=== PATIENT | female | born 1990 | race Caucasian/White ===

== ENCOUNTER 2023-09-13 20:04 | Emergency (ER) | payer OTHER, SELFPAY ==
[2023-09-13 20:06] VITALS: BP 118/78
[2023-09-13 20:38] LABS: % Basophils 0.4 % (0-2); % Eosinophils 0.1 % (0-6); % Immature Granulocytes 0.3 % (0-0.5); % Lymphocytes 8.3 % (20.5-51.1); % Monocytes 3.2 % (1.7-9.3); % Neutrophils 87.7 % (42.2-75.2); Absolute Basophils 0.1 10^3/uL (0-0.2); Absolute Immature Granulocytes 0.1 10^3/uL (0-0.05); Absolute Lymphocytes 1.5 10^3/uL (1.2-3.4); Absolute Monocytes 0.6 10^3/uL (0.1-0.6); Absolute Neutrophils 15.6 10^3/uL (1.4-6.5); Hematocrit 35.3 % (37.0-47.0); Hemoglobin 12.5 g/dL (12.0-16.0); Mean Corp Hgb Conc. 35.4 g/dL (33.0-37.0); Mean Corpuscular Hgb 30.4 pg (27.0-31.0); Mean Corpuscular Volume 85.9 fL (81.0-99.0); Mean Platelet Volume 9.8 fL (7.4-10.4); Nucleated Red Blood Cells % 0 %; Platelet Count 379 10^3/uL (130-400); Red Blood Cell Count 4.11 10^6/uL (4.20-5.40); White Blood Cell Count 17.8 10^3/uL (4.8-10.8)
[2023-09-13 20:51] LABS: HCG, Serum Qualitative Screen Negative
[2023-09-13 20:54] LABS: ALT (SGPT) 20 U/L (0-35); AST (SGOT) 24 U/L (14-36); Albumin 4.9 g/dl (3.5-5.0); Alkaline Phosphatase 48 U/L (38-126); Blood Urea Nitrogen 19 mg/dl (7-17); Carbon Dioxide 18 mmol/L (22-30); Chloride 106 mmol/L (98-107); Glucose 110 mg/dl (70-99); Lipase 125 U/L (23-300); Potassium 4.6 mmol/L (3.5-5.1); Sodium 133 mmol/L (135-145); Total Bilirubin 0.5 mg/dl (0.2-1.3); eGFR > 60.00
[2023-09-13] MEDS: ZOFRAN 4 MG IV (21:08)
[2023-09-13] MEDS: TORADOL 15 MG IV (21:09)
[2023-09-13 21:25] VITALS: BMI 21.3
[2023-09-13] MEDS: NSS 500 IV (21:27)
--- NOTE | 2023-09-13 21:27 | ED.GENMED ---
History of Present Illness
General
Chief Complaint: Abdominal Pain
Source: patient and family
Exam Limitations: none
Time Seen by Provider: 09/13/23 20:58
Nursing documentation reviewed up to this point in time: agreed with
Travel History
Have you had any contact with someone who has COVID-19?: No
Do you have any symptoms of coronavirus? Fever > 100 degrees, chills, cough, shortness of breath, sore throat, loss of taste or smell, muscle aches, or headache?: No
History of Present Illness
History of Present Illness:
Pleasant 33-year-old female that presents with left-sided flank pain that began around 2 PM. She states that it was severe and caused her nausea and vomiting but it was at its worst. She states that the pain quickly subsided but then came back
several times over the course of the afternoon. Tonight she states that the pain radiated to her left lower abdomen. She denies fever or chills. Reports nausea with vomiting. Denies chest pain or shortness of breath. No previous history of
kidney stones.
Phy Exam
General Physical Exam
General Presentation: well appearing and mild distress
General age: appears stated age
General Skin: warm and dry
General Habitus: normal
General Mental: alert
General Hydration: appears well hydrated
ENT Exam
ENT Exam: EOMI, pharynx normal, neck supple and normocephalic
Eye Exam
Eye Exam: PERRL, cornea clear and conjunctiva normal
Cardiovascular Exam
Cardiovascular Exam: regular rate/rhythm, no edema, no murmur and normal peripheral pulses
Pulmonary Exam
Pulmonary Exam: lungs clear, no respiratory distress, no rales, no crackles, no rhonchi, no stridor, no wheezing and no cough
Gastrointestinal Exam
Gastrointestinal Exam: normal bowel sounds, non tender, soft, no organomegaly, no pulsatile mass and non distended
Neurological Exam
Neurological Exam: alert, oriented x3, no motor deficits and speech normal
Musculoskeletal Exam
Musculoskeletal Exam: full ROM, back pain (Left CVA tenderness), no edema and neuro vasc intact
Skin Exam
Skin Exam: normal color, warm/dry, no rash and no petechia
Psychiatric Exam
Psychiatric Exam: normal mood/affect
Course
Orders/Labs/Results
Orders:
Orders
09/13/23 20:11
Test Result ONCE
09/13/23 20:14
Complete Blood Count/With Diff Urgent
Comprehensive Metabolic Panel Urgent
HCG, Serum Qualitative Screen Urgent
Lipase Urgent
09/13/23 21:06
Ketorolac [Toradol] 15 mg IV NOW STA
Ondansetron Injectable [Zofran] 4 mg IV NOW STA
09/13/23 21:20
HYDROmorphone [Dilaudid] 0.5 mg IV NOW STA
09/13/23 21:26
0.9% Sodium Chloride 500 ml [Nss] 500 ml IV ONCE
09/13/23 21:28
CT Abd/pel Without Iv Or Oral Urgent
Comment:
Reason For Exam: left flank pain
09/13/23 22:19
Urinalysis Reflex To Culture Urgent
Date Specimen was Collected: 09/13/23
Time Specimen was Collected: 22:18
Urine Microscopic Reflex Cult Urgent
Abnormal Lab Results
09/13/23 09/13/23
20:14 22:19
WBC 17.8 H 10^3/uL
(4.8-10.8)
RBC 4.11 L 10^6/uL
(4.20-5.40)
Hct 35.3 L %
(37.0-47.0)
Abs Immat Gran (auto) 0.1 H 10^3/uL
(0-0.05)
Absolute Neuts (auto) 15.6 H 10^3/uL
(1.4-6.5)
Neutrophils % 87.7 H %
(42.2-75.2)
Lymphocytes % 8.3 L %
(20.5-51.1)
Sodium 133 L mmol/L
(135-145)
Carbon Dioxide 18 L mmol/L
(22-30)
BUN 19 H mg/dl
(7-17)
Creatinine 1.1 H mg/dL
(0.6-1.0)
Glucose 110 H mg/dl
(70-99)
Urine Ketones 3+ A
(Negative)
Leukocyte Esterase Rfl Trace A
(Negative)
Urine Bacteria (Reflex) Few A
(Negative)
09/13/23 20:14
09/13/23 20:14
Vital Signs
Initial and Last Documented VS:
Initial Vital Signs
Temp Pulse Resp BP Pulse Ox
98.8 F 91 20 118/78 100
09/13/23 20:06 09/13/23 20:06 09/13/23 20:06 09/13/23 20:06 09/13/23 20:06
Last Documented Vital Signs
Temp Pulse Resp BP Pulse Ox
98.8 F 91 20 118/78 100
09/13/23 20:06 09/13/23 20:06 09/13/23 20:06 09/13/23 20:06 09/13/23 20:06
*Critical Care Note
Total Time (30-74mins, 75-104mins- exclusive of procedures): Not Applicable
Update Note
Update Note:
CT abdomen and pelvis without IV contrast
IMPRESSION:
2 x 3 mm obstructing left UVJ stone, protruding into the bladder, with associated mild/moderate hydroureteronephrosis and perinephric stranding/fluid. Given the amount of perinephric fluid, consider underlying calyceal leakage/rupture. Several
additional nonobstructing renal stones bilaterally. Right kidney without hydronephrosis or perinephric stranding.
Decompressed bladder.
Left-sided colonic diverticulosis.
ED Attending Note
-
Portions of this chart may have been created with voice recognition software.� Occasional wrong word or��sound alike� substitutions may have occurred due to the inherent limitations of voice recognition software.
Discharge Plan
Departure
Patient Disposition: Home (Routine Discharge)
Date of Disposition: 09/13/23
Time of Disposition: 23:10
Patient with high blood pressure during this ER visit?: No
Discharge Problem:
Kidney stone
Instructions: Kidney Stones (DC), How to Strain Your Urine
Prescriptions:
New
oxycodone-acetaminophen [Percocet] 5-325 mg Tablet
1 tab PO Q4HPRN PRN (Reason: pain) Qty: 7 0RF
tamsulosin [Flomax] 0.4 mg Capsule
0.4 mg PO DAILY Qty: 7 0RF
diclofenac sodium 75 mg tablet,delayed release (DR/EC)
75 mg PO BID Qty: 10 0RF
No Action
multivitamin Tablet
1 tab PO DAILY
Referrals:
Ambrosio Nazario MD [Active] -
PRIVATE,PHYSICIAN [Family Provider] -
Activity Restrictions/Additional Instructions:
It was a pleasure meeting you and taking part in your care. We hope for your continued healing and wellness.
Please read discharge instructions in their entirety. However, they are for general education and may not describe your exact diagnosis at discharge. Information on your ER visit and medical conditions were discussed with you along with appropriate
follow up information...
If indicated, please take your medications as instructed and indicated on discharge paperwork.
Please schedule a follow up appointment as directed. Call to schedule an appointment
Please return to the emergency department with ANY change in, persisting, or worsening of symptoms. If any of your symptoms do not improve, or persist, or become more severe within 6-12 hours, please return to the emergency department for further
care.
Please return to the emergency department if you develop a headache, neck pain/stiffness, fever greater than 100.4F, chest pain, shortness of breath, persistent nausea, vomiting, slurred speech, difficulty walking, numbness/tingling, weakness, signs
of infection or any other symptoms that are worrisome to you.
If you have any questions or concerns please do not hesitate to call the Hospital at or E-mail me directly at [email or web address]
Interventions
Interventions:
*Risk Screen - Suicide Last Done: 09/13/23 20:06
*General Assessment Last Done: 09/13/23 20:06
*Neglect/Abuse Screening Last Done: 09/13/23 20:55
ED- Fall Risk Assessment Last Done: 09/13/23 20:55
*ED COVID-19 Vaccine History Last Done: 09/13/23 20:06
VW-Aniciq-Ziuqykgryd Assessment Last Done: 09/13/23 20:55
Discharge Date and Time
Print Language: Somali
[2023-09-13] MEDS: DILAUDID 0.5 MG IV (21:28)
[2023-09-13 21:35] VITALS: BP 120/76
[2023-09-13 22:17] VITALS: BP 118/79
[2023-09-13 22:26] LABS: Urine Albumin Trace (Neg - Trace); Urine Bilirubin Negative (Negative); Urine Character Slightly Cloudy (Clear); Urine Color Yellow; Urine Glucose Negative (Negative); Urine Ketone 3+ (Negative); Urine Leukocyte Trace (Negative); Urine Nitrite Negative (Negative); Urine Occult Blood Negative (Negative); Urine Urobilinogen Negative (Neg - 1+); Urine pH 6.5 (5.0-9.0)
[2023-09-13 22:33] LABS: Urine Bacteria Few (Negative); Urine Red Blood Cell None Seen /HPF (0-2); Urine Squamous Cell 16-20 /LPF (Few)
[2023-09-13 23:00] VITALS: BP 120/80
[2023-09-14] MEDS: PERCOCET 5/325 1 TABLET PO (00:06)
[2023-09-14] MEDS: ZOFRAN ODT (ORALLY DISINTEGRATING) 4 MG PO (00:07)
[2023-09-14 00:13] VITALS: BP 127/79
[2023-09-14 00:20] VITALS: BP 127/79
== END 2023-09-14 00:20 | disposition home or self-care (01) ==
LOC: EMR 20:04
PROVIDERS: Student in an Organized Health Care Education/Training Program; EMERGENCY PHYSICIAN Student in an Organized Health Care Education/Training Program
DX: N13.2 Hydronephrosis with renal and ureteral calculous obstruction (principal)
CPT/HCPCS: 99284; 96374; 96375 ×2; 96361; 74176; 80053; 81003; 81015; 83690; 84703; 85025

== ENCOUNTER 2024-02-15 21:11 | Emergency (ER) | payer OTHER, SELFPAY ==
[2024-02-15 21:16] VITALS: BP 127/89
[2024-02-15 23:03] VITALS: BP 124/82
--- NOTE | 2024-02-16 | ED.GENMED ---
History of Present Illness
General
Chief Complaint: Breathing Problem
Source: patient
Exam Limitations: none
Time Seen by Provider: 02/15/24 23:50
History of Present Illness
History of Present Illness:
See MDM
Past History
Past History
ED Past Medical History: Asthma
ED Past Surgical History: None
Social History
Tobacco: Non-smoker
Alcohol: None
Phy Exam
Physical Exam
Physical Exam:
See MDM
Course
Orders/Labs/Results
Orders:
Orders
02/15/24 21:12
EKG [Electrocardiogram (*1)] Urgent
Reason for Study: Chest Pain
EKG- Treatment ONCE
02/15/24 21:26
Chest [CR Chest - 2 Views ] Urgent
Comment:
Reason For Exam: left chest pain with cough
02/15/24 23:59
Dexamethasone Pf [Decadron] 10 mg PO NOW STA
Ketorolac [Toradol] 30 mg IM NOW STA
Vital Signs
Initial and Last Documented VS:
Initial Vital Signs
Temp Pulse Resp BP Pulse Ox
98.9 F 78 20 127/89 98
02/15/24 21:16 02/15/24 21:16 02/15/24 21:16 02/15/24 21:16 02/15/24 21:16
Last Documented Vital Signs
Temp Pulse Resp BP Pulse Ox
98.9 F 78 22 124/82 99
02/15/24 21:16 02/15/24 23:03 02/15/24 23:03 02/15/24 23:03 02/15/24 23:03
MDM/Problems Addressed
Differential Diagnosis Includes:
HPI and MDM Narrative:
33-year-old female presenting with persistent cough, wheezing, shortness of breath and now with left-sided chest pain. Patient was recently diagnosed with bronchitis and finished a course of antibiotics and steroids. She does have an underlying
diagnosis was asthma. She does admit that she felt better while taking the medicines. When she stopped the medicines 2 days ago, symptoms returned. Chest x-ray and EKG were done prior to my evaluation. Chest x-ray clear EKG nonischemic. On my
exam, she appears to have pleuritic chest pain. She has no clinical signs of DVT. She is neither hypoxic nor tachycardic
Physical exam
General: Well appearing and non-toxic
HEENT: protecting airway
Neck: appears supple
CV: No evidence of cyanosis. Regular rate and rhythm
Resp: No accessory muscle use. Mild expiratory wheezing throughout
Abd: Non-distended
Extremities: No deformities. No leg edema or unilateral tenderness
Neuro: alert
Psych: Normal affect
Skin: Intact
Problems Addressed including Acute and Chronic Conditions affecting care:
1. Asthmatic bronchitis
Acuity: acute
Prognosis: stable
Details: Will restart steroids and placed on a longer taper
2. Pleuritic chest pain
Acuity: acute
Prognosis: stable
Details: Chest x-ray clear. EKG nonischemic. Will start NSAIDs
Differential Diagnosis (but not limited to): Pneumothorax, pleuritic chest pain, asthma
Testing considered: D-dimer but she is neither hypoxic nor tachycardic
Drug therapy (if applicable): OTC meds, please see d/c instruction regarding Rx drugs
Amount and/or Complexity of Data Reviewed
Clinical info obtained from: Patient
External data reviewed: N/A
Labs I independently reviewed (but not limited to): N/A
Radiology: X-ray independently reviewed: Chest x-ray clear
Pulse Ox: not hypoxic
EKG independently reviewed: N/A
[employer]: N/A
Critical Care: N/A
Risk of Complication:
Social Determinants of health: Good social support
Discussed with other providers: N/A
Escalation of Care includes Admit/Obs: After being observed in the Emergency Department, pt stable for discharge.
Occasional wrong word or 'sound a like' substitutions may have occurred due to the inherent limitations of voice recognition software. Read the chart carefully and recognize, using context, where substitutions have occurred.
*Critical Care Note
Total Time (30-74mins, 75-104mins- exclusive of procedures): Not Applicable
ED Attending Note
-
Portions of this chart may have been created with voice recognition software.� Occasional wrong word or��sound alike� substitutions may have occurred due to the inherent limitations of voice recognition software.
Discharge Plan
Departure
Patient Disposition: Home (Routine Discharge)
Date of Disposition: 02/16/24
Time of Disposition: 00:00
Patient with high blood pressure during this ER visit?: No
Discharge Problem:
Asthmatic bronchitis, Pleuritic chest pain
Instructions: Acute Bronchitis, Adult (DC)
Prescriptions:
New
prednisone 10 mg tablet
See Rx Instructions .ROUTE .COMPLEX Qty: 45 0RF
Rx Instructions:
5 tabs day 1-3, 4 tabs day 4-6, 3 tabs day 7-9, 2 tabs day 10-12, 1 tab day 13-15
diclofenac potassium 50 mg tablet
50 mg PO BID Qty: 20 0RF
No Action
multivitamin Tablet
1 tab PO DAILY
oxycodone-acetaminophen [Percocet] 5-325 mg Tablet
1 tab PO Q4HPRN PRN (Reason: pain) Qty: 7 0RF
tamsulosin [Flomax] 0.4 mg Capsule
0.4 mg PO DAILY Qty: 7 0RF
diclofenac sodium 75 mg tablet,delayed release (DR/EC)
75 mg PO BID Qty: 10 0RF
Referrals:
PRIVATE,PHYSICIAN [Family Provider] -
Activity Restrictions/Additional Instructions:
Please return for any worsening symptoms.
You may return at any time if you have further concerns.
Please follow up with your doctor at the first available appointment, preferably this week.
Thank you for choosing [facility].
Interventions
Interventions:
*Risk Screen - Suicide Last Done: 02/15/24 21:16
*General Assessment Last Done: 02/15/24 21:16
*Neglect/Abuse Screening Last Done: 02/15/24 21:16
ED- Fall Risk Assessment Last Done: 02/15/24 21:16
*ED COVID-19 Vaccine History Last Done: 02/15/24 21:16
Discharge Date and Time
Print Language: Zimbabwean
[2024-02-16 00:07] VITALS: BP 117/72
[2024-02-16] MEDS: DECADRON 10 MG PO (00:16)
[2024-02-16] MEDS: TORADOL 30 MG IM (00:16)
== END 2024-02-16 00:21 | disposition home or self-care (01) ==
LOC: EMR 21:11
PROVIDERS: EMERGENCY PHYSICIAN Student in an Organized Health Care Education/Training Program
DX: J45.909 Unspecified asthma, uncomplicated (principal); R07.81 Pleurodynia
CPT/HCPCS: 99283; 96372; 71046; 93005